=== PATIENT | female | born 1985 | race Two or more races ===

== ENCOUNTER 2019-01-19 10:41 | Emergency (ER) | payer OTHER ==
[~2019-01-19] VITALS: Ht 162.6 cm; Wt 93.0 kg
[2019-01-19 11:30] VITALS: BP 142/82
== END 2019-01-19 14:16 | disposition home or self-care (01) ==
LOC: ER 10:41
DX: J04.0 Acute laryngitis (principal); J03.90 Acute tonsillitis, unspecified; H10.9 Unspecified conjunctivitis

== ENCOUNTER 2023-09-20 13:00 | Emergency (ER) | payer MEDICAID, OTHER ==
[~2023-09-20] VITALS: Ht 162.6 cm; Wt 105.3 kg
[2023-09-20 14:22] VITALS: BP 173/94; PULSE 100; RESP 16; TEMP 98.6; O2SAT 98
[2023-09-20] MEDS ORDERED: METH-1182 PO (16:06)
[2023-09-20] MEDS ORDERED: IBUP-1456 PO (16:06)
== END 2023-09-20 16:15 | disposition home or self-care (01) ==
LOC: ER 13:00
DX: S29.011A Strain of muscle and tendon of front wall of thorax, initial encounter (principal); V43.52XA Car driver injured in collision with other type car in traffic accident, initial encounter; Y93.89 Activity, other specified; Y92.488 Other paved roadways as the place of occurrence of the external cause; Y99.8 Other external cause status
CPT/HCPCS: 71101